=== PATIENT | female | born 1980 | race African-American/Black ===

== ENCOUNTER 2020-08-18 05:44 | Inpatient (IN) | payer OTHER ==
[2020-08-18] MEDS ORDERED: BETAMET ACET/BETAMET NA PH 30 MG/5 ML VIAL IM ONE (06:53)
[2020-08-18] MEDS ORDERED: AMPICILLIN - 2 GM in SODIUM CHLORIDE 100 ML IVPB ONE (06:54)
[2020-08-18] MEDS ORDERED: MAGNESIUM SULFATE 20GM/500ML - 20 GM/500 ML INFUS.BAG IV SCH (07:00)
[2020-08-18] MEDS ORDERED: LACTATED RINGERS SOLUTION 1,000 ML/1,000 ML INFUS.BAG IV SCH (07:00)
[2020-08-18] MEDS ORDERED: MAGNESIUM 4GM/H20 - 4 GM/100 ML IVPB IVPB SCH (07:00)
[2020-08-18] MEDS ORDERED: AMPICILLIN SODIUM 2 GM VIAL ONE (07:09)
[2020-08-18] MEDS ORDERED: MAGNESIUM SULFATE 20GM/500ML - 20 GM/500 ML INFUS.BAG ONE (08:10)
[2020-08-18 08:34] VITALS: BP 144/81; PULSE 102; TEMP 97.6
[2020-08-18 08:57] VITALS: BMI 34.9
== END 2020-08-18 08:45 | disposition short-term general hospital (02) | DRG 833 ==
LOC: JER 05:44 → JLDR 05:53
PROVIDERS: ADMIT Obstetrics & Gynecology; ATTEND Obstetrics & Gynecology
DX: O60.02 Preterm labor without delivery, second trimester (principal); Z3A.24 24 weeks gestation of pregnancy
CPT/HCPCS: 96372; 99285-25; C9803; U0003; U0005